=== PATIENT | female | born 1990 | race Caucasian/White ===

== ENCOUNTER 2019-07-28 02:12 | Emergency (ER) | payer SELFPAY ==
[2019-07-28 03:56] LABS: ABS Eosinophils 0.1 10^3/ul (0-0.6); ABS Lymphocytes 0.8 10^3/ul (1.0-4.8); ABS Monocytes 0.6 10^3/ul (0-0.8); ABS Neutrophils 5.1 10^3/ul (1.5-7.7); Eosinophil % 0.8 %; Hematocrit 35 % (35-47); Lymphocyte % 11.8 %; Mean Corpuscular HGB Conc 34 g/dL (31-36); Mean Corpuscular Hemoglobin 30 pg (27-31); Mean Corpuscular Volume 86 fL (80-97); Platelet Count 153 10^3/uL (150-450); Red Blood Count 4.07 10^6 /uL (3.70-4.87); Red Cell Distribution Width 13 % (10-15); White Blood Count 6.7 10^3/uL (3.5-10.8)
[2019-07-28 04:12] LABS: ALT 12 U/L (7-52); AST 19 U/L (13-39); Albumin 3.6 g/dL (3.2-5.2); Albumin/Globulin Ratio 1.8 (1-3); Alkaline Phosphatase 41 U/L (34-104); Amylase 46 U/L (29-103); Anion Gap 7 mmol/L (2-11); BUN/Creatinine Ratio 19.4 (8-20); Blood Urea Nitrogen 19 mg/dL (6-24); C Reactive Protein 1.22 mg/L (<8.01); CO2 Carbon Dioxide 24 mmol/L (22-32); Calcium 9.2 mg/dL (8.6-10.3); Chloride 108 mmol/L (101-111); EGFR African American 81.2 (>60); EGFR Non-African American 67.1 (>60); Glucose 112 mg/dL (70-100); Potassium 3.4 mmol/L (3.5-5.0); Sodium 139 mmol/L (135-145); Total Protein 5.6 g/dL (6.4-8.9)
[2019-07-28 04:19] LABS: HCG Pregnancy < 0.60 mIU/mL
[2019-07-28] MEDS ORDERED: Pantoprazole IV* 40 MG IV ONE (04:36)
[2019-07-28] MEDS ORDERED: Ondansetron INJ* 2 MG/ML VIAL IV ONE (04:36)
[2019-07-28] MEDS ORDERED: NS 0.9% 1000 ML** 1,000 ML IV ONE ×2 (04:36→05:57)
--- NOTE | 2019-07-28 04:42 | ED ---
GI/ HPI - HPI Summary HPI Summary: This patient is a 28 year old F presenting to ED with a chief complaint of nausea since 1999 yesterday. Patient reports she initially had constipation, but she took Miralax and had a bowel movement yesterday morning. The nausea has remained constant. Patient reports having abdominal pain that has lessened in severity throughout this morning. She reports vomiting, but only bringing up liquidy-bile. She denies fever and diarrhea. Patient takes Lexapro and has epilepsy, but does not take medications for it as she does not have reoccurring medications. Patient is currently on her menstrual cycle, starting two days ago. Patient went to [facility] yesterday and got a new IUD placed. The patient rates the pain 7/10 in severity. Symptoms aggravated by nothing. Symptoms alleviated by nothing. - History of Current Complaint Chief Complaint: EDAbdPain Stated Complaint: NAUSEA PER PT MOTHER Hx Obtained From: Patient Onset/Duration: Started Hours Ago - Since 1999 yesterday, Still Present Timing: Constant, Lasting Hours - Since 1999 yesterday Severity: Moderate Current Severity: Moderate Pain Intensity: 7 Location of Pain: Diffuse - Lower abdomen Associated Signs and Symptoms: Positive: Nausea, Vomiting, Constipation. Negative: Diarrhea, Fever Aggravating Factor(s): Nothing Alleviating Factor(s): Nothing - Allergy/Home Medications Allergies/Adverse Reactions: Allergies Allergy/AdvReac Type Severity Reaction Status Date / Time No Known Allergies Allergy Verified 07/28/19 02:19 Home Medications: Home Medications Lexapro 10 mg 10 mg PO DAILY 07/28/19 [History Confirmed 07/28/19] PMH/Surg Hx/FS Hx/Imm Hx Sensory History: Denies: Hx Legally Blind, Hx Deafness Opthamlomology History: Denies: Hx Legally Blind EENT History: Denies: Hx Deafness Neurological History: Reports: Other Neuro Impairments/Disorders - Epilepsy - Surgical History Surgery Procedure, Year, and Place: Left arm surgery to repair broken arm Infectious Disease History: No Infectious Disease History: Reports: Traveled Outside the [place] in Last 30 Days - Family History Known Family History: Positive: Other - Renal calculi - Social History Alcohol Use: Occasionally Hx Substance Use: No Substance Use Type: Reports: None Hx Tobacco Use: No Smoking Status (MU): Never Smoked Tobacco Review of Systems - ROS Summary Review of Systems Summary: Home Medications Medication Instructions Recorded Confirmed Type Lexapro 10 mg 10 mg PO DAILY 07/28/19 07/28/19 History Negative: Fever Gastrointestinal: Other - Constipation Positive: Abdominal Pain, Vomiting, Nausea. Negative: Diarrhea All Other Systems Reviewed And Are Negative: Yes Physical Exam - Summary Physical Exam Summary: General: Well-developed, Well-nourished female, appears in moderate discomfort HEENT: Normocephalic, Atraumatic. Eyes: Conjuctiva normal, PERRL. Oropharynx: Clear, mucous membranes moist, (-) exudates. Neck: Soft, FROM, (-) lymphadenopathy, (-) thyromegaly, (-) JVD. Cardiovascular: Normal sinus rhythm, (-) murmur. Lungs: Clear to auscultation bilaterally (-) wheezes, (-) rales, (-) rhonchi. Abdomen: Diffuse lower abdominal tenderness Back: (-) CVA tenderness Extremities: No edema. Skin: Warm, dry, (-) rash. Neuro: Alert and oriented x3, no focal deficits. Psychiatric: Mood normal, affect normal. Triage Information Reviewed: Yes Vital Signs On Initial Exam: Initial Vitals Temp Pulse Resp BP Pulse Ox 98.5 F 78 20 139/75 100 07/28/19 02:13 07/28/19 02:13 07/28/19 02:13 07/28/19 02:13 07/28/19 02:13 Vital Signs Reviewed: Yes Procedures - Sedation Patient Received Moderate/Deep Sedation with Procedure: No Diagnostics - Vital Signs Vital Signs Temp Pulse Resp BP Pulse Ox 07/28/19 02:13 98.5 F 78 20 139/75 100 - Laboratory Lab Results: Lab Results 07/28/19 07/28/19 07/28/19 Range/Units 03:44 03:44 03:44 WBC 6.7 (3.5-10.8) 10^3/uL RBC 4.07 (3.70-4.87) 10^6 /uL Hgb 12.0 (12.0-16.0) g/dL Hct 35 (35-47) % MCV 86 (80-97) fL MCH 30 (27-31) pg MCHC 34 (31-36) g/dL RDW 13 (10-15) % Plt Count 153 (150-450) 10^3/uL MPV 9.0 (7.4-10.4) fL Neut % (Auto) 77.3 % Lymph % (Auto) 11.8 % Bath % (Auto) 9.6 % Eos % (Auto) 0.8 % Baso % (Auto) 0.5 % Absolute Neuts (auto) 5.1 (1.5-7.7) 10^3/ul Absolute Lymphs (auto) 0.8 L (1.0-4.8) 10^3/ul Absolute Monos (auto) 0.6 (0-0.8) 10^3/ul Absolute Eos (auto) 0.1 (0-0.6) 10^3/ul Absolute Basos (auto) 0.0 (0-0.2) 10^3/ul Absolute Nucleated RBC 0.0 10^3/ul Nucleated RBC % 0.0 Sodium 139 (135-145) mmol/L Potassium 3.4 L (3.5-5.0) mmol/L Chloride 108 (101-111) mmol/L Carbon Dioxide 24 (22-32) mmol/L Anion Gap 7 (2-11) mmol/L BUN 19 (6-24) mg/dL Creatinine 0.98 H (0.51-0.95) mg/dL Est GFR ( Amer) 81.2 (>60) Est GFR (Non-Af Amer) 67.1 (>60) BUN/Creatinine Ratio 19.4 (8-20) Glucose 112 H (70-100) mg/dL Lactic Acid 0.9 (0.5-2.0) mmol/L Calcium 9.2 (8.6-10.3) mg/dL Total Bilirubin 0.90 (0.2-1.0) mg/dL AST 19 (13-39) U/L ALT 12 (7-52) U/L Alkaline Phosphatase 41 (34-104) U/L C-Reactive Protein 1.22 (<8.01) mg/L Total Protein 5.6 L (6.4-8.9) g/dL Albumin 3.6 (3.2-5.2) g/dL Globulin 2.0 (2-4) g/dL Albumin/Globulin Ratio 1.8 (1-3) Amylase 46 (29-103) U/L Lipase 21 (11.0-82.0) U/L Beta HCG, Quant < 0.60 mIU/mL Result Diagrams: 07/28/19 03:44 07/28/19 03:44 Lab Statement: Any lab studies that have been ordered have been reviewed, and results considered in the medical decision making process. Re-Evaluation - Re-Evaluation First Eval Re-Evaluation Time: 06:50 Change: Improved Comment: I have discussed results with the patient and nausea is resolved. Discussed symptoms that warrant immediate return to ED. GIGU Course/Dx - Course Course Of Treatment: 28-year-old female presents to the emergency room with abdominal discomfort and nausea. In the ED course, patient received fluids, Zofran, and Protonix. Workup demonstrated no significant abnormality. Patient' s symptoms improved. Discharged to home. Follow-up with PCP. Follow-up sooner for any worsening symptoms. - Diagnoses Provider Diagnoses: Gastroenteritis Discharge ED - Sign-Out/Discharge Documenting (check all that apply): Patient Departure - Discharge - Discharge Plan Condition: Stable Disposition: HOME Patient Education Materials: Gastroenteritis (ED) Referrals: [facility] [Outside] - 3 Days Additional Instructions: Please follow up with your primary care physician within three days. Please return to ED for any new or worsening symptoms. - Billing Disposition and Condition Condition: STABLE Disposition: Home - Attestation Statements Document Initiated by Dinorah: Yes Documenting Scribe: Javier Daley Provider For Whom Dinorah is Documenting (Include Credential): Kathleen Raya MD Scribe Attestation: Javier Jacob, scribed for Kathleen Raya MD on 07/31/19 at 1934. Scribe Documentation Reviewed: Yes Provider Attestation: The documentation as recorded by the Javier gerber accurately reflects the service I personally performed and the decisions made by me, Kathleen Raya MD Status of Scribe Document: Viewed
[2019-07-28 06:14] LABS: Urine Appearance Clear; Urine Bilirubin Negative (Negative); Urine Blood 1+ (Negative); Urine Color Straw; Urine Glucose Negative (Negative); Urine Ketones Trace (Negative); Urine Nitrite Negative (Negative); Urine Protein Negative (Negative); Urine Specific Gravity 1.005 (1.010-1.030); Urine Urobilinogen Negative (Negative)
[2019-07-28 06:29] LABS: Urine Bacteria Absent (Absent); Urine Red Blood Cell Trace(0-2/hpf) (Absent); Urine Squamous Epithelial Cell Present (Absent); Urine White Blood Cell Absent (Absent)
[2019-07-28] MEDS ORDERED: O ndansetron ODT 4MG 5TAB PRPK 4 MG PAK PO ONE (06:51)
[2019-07-28 08:25] VITALS: BP 92/54
== END 2019-07-28 08:24 | disposition home or self-care (01) ==
LOC: ED 02:12
DX: K52.9 Noninfective gastroenteritis and colitis, unspecified (principal); Z97.5 Presence of (intrauterine) contraceptive device; G40.909 Epilepsy, unspecified, not intractable, without status epilepticus
CPT/HCPCS: 36415; 80053; 81003; 81015; 82150; 83605; 83690; 84702; 85025; 86140; 96361; 96374; 96375; 99283; A9270-GY; J2405